=== PATIENT | male | born 1995 | race Asian ===

== ENCOUNTER 2017-08-19 17:50 | Emergency (ER) | payer BC ==
[~2017-08-19] VITALS: Ht 182.9 cm; Wt 131.5 kg
[2017-08-19 18:51] LABS: PLATELET COUNT 248 K/uL (142-355)
[2017-08-19 20:54] VITALS: BP 125/81; TEMP 98.3
== END 2017-08-19 20:55 | disposition home or self-care (01) ==
LOC: ED 17:50
PROVIDERS: Specialist
DX: R07.81 Pleurodynia (principal)
CPT/HCPCS: 36415; 85027; 85651; 99283

== ENCOUNTER 2018-09-01 11:13 | Outpatient (CLI) | payer BC ==
[2018-09-01 11:47] LABS: PLATELET COUNT 238 K/uL (142-355)
[2018-09-01 12:23] LABS: POTASSIUM 3.9 mmol/L (3.6-5.2)
== END 2018-09-01 19:34 | disposition home or self-care (01) ==
LOC: LABW 11:13
PROVIDERS: Nurse Practitioner
DX: R53.83 Other fatigue (principal)
CPT/HCPCS: 36415; 80053; 84443; 85027

== ENCOUNTER 2019-06-03 22:46 | Emergency (ER) | payer BC ==
[~2019-06-03] VITALS: Ht 182.9 cm; Wt 148.3 kg
[2019-06-03 23:40] LABS: PLATELET COUNT 242 K/uL (142-355)
[2019-06-04 00:17] LABS: PARTIAL THROMBOPLASTIN TIME 28.1 SECONDS (24.5-33.6)
[2019-06-04 00:32] LABS: POTASSIUM 3.7 mmol/L (3.6-5.2)
[2019-06-04 02:14] VITALS: BP 120/60; TEMP 98.6
== END 2019-06-04 02:14 | disposition home or self-care (01) ==
LOC: ED 22:46
PROVIDERS: Family Medicine
DX: M62.82 Rhabdomyolysis (principal)
CPT/HCPCS: 80053; 82550; 82553; 85027; 85610; 85730; 96360; 99284

== ENCOUNTER 2019-08-28 14:07 | Inpatient (IN) | payer BC ==
[~2019-08-28] VITALS: Ht 180.3 cm; Wt 153.3 kg
[2019-08-28] VITALS (16 sets, daily range): BP systolic 107–160; BP diastolic 44–104; TEMP 97.5–99.3; Ht 180.3 cm; Wt 153.3 kg
[2019-08-28 14:34] LABS: PLATELET COUNT 248 K/uL (142-355)
[2019-08-28 14:40] LABS: POTASSIUM 3.4 mmol/L (3.6-5.2); SODIUM 140 mmol/L (136-145)
[2019-08-28 15:07] LABS: PARTIAL THROMBOPLASTIN TIME 26.5 SECONDS (24.5-33.6)
--- NOTE | 2019-08-28 17:20 | NUR ---
RECIEVED REPORT FROM ER ADMITTED 24 YEAR OLD MALE TO ICU VIA W/C FROM ER ADMIT TO DR HERNANDEZ SERVICES DX A FIB RVR, HTN, HYPOKALEMIA, ELEVATED CPK/CKMB ORIENTED TO ICU, PLACED ON MONITOR. HR 108 A FIB. B/P 138/67, RESP 25 SAT 97% DENIES CHEST PAINS.
[2019-08-28] MEDS ORDERED: CETI10TA PO (18:48)
[2019-08-28] MEDS ORDERED: D32000 UNIT PO (18:51)
[2019-08-29] VITALS (21 sets, daily range): BP systolic 97–140; BP diastolic 46–77; TEMP 98–98.6
[2019-08-29 06:27] LABS: POTASSIUM 3.6 mmol/L (3.6-5.2)
--- NOTE | 2019-08-29 08:59 | NUR ---
RT IN AT BS. ECHO IN PROGRESS.
--- NOTE | 2019-08-29 09:34 | NUR ---
PT UP AT BS USING URINAL. AM CARE PER SELF.
--- NOTE | 2019-08-29 11:33 | NUR ---
CALL TO DR CURRAN'S OFFICE IN [facility]. PT REQUEST APPT WITH HIM. DR HARPER WANTS APPY MADE WITH HIM. OFFICE STAFF REQUESTED A REFERRAL & ALL INFO ON PT.
--- NOTE | 2019-08-29 12:06 | NUR ---
PT WITH HR 82 PO CARDIZEM GIVEN PER DR'S ORDER.CARDIZEM DRIP DECREASED TO 3MG/HR.
--- NOTE | 2019-08-29 13:52 | NUR ---
DR KOLB NOTIFIED THAT A REFERAL HAS BEEN DONE.
--- NOTE | 2019-08-29 14:30 | NUR ---
CARDIZEM DECREASED TO 1 MG/HR. 122/62, HR 76. PT WITH EYES CLOSED.O2 SAT 95% ON RM AIR.
--- NOTE | 2019-08-29 15:37 | NUR ---
PT ON TELE TALKING WITH FAMILY. BP 113/63, HR 81. KEATON Ott/Meena.
--- NOTE | 2019-08-29 17:45 | NUR ---
PT WITH NOTED PVC'S & A SHORT 6 BEAT RUN OF VTACH.CHEST PRESSURE. DR ESQUEDA NOTIFIED & IN TO SEE PT.
--- NOTE | 2019-08-29 18:20 | NUR ---
PT WITH SHORT RUN 2 BEAT VT, HR UP TO 143, PT CLUTCHING CHEST & MOANING, DR HERNANDEZ NOTIFIED, PT MEDICATED WITH MORPHINE 2MG IVP & 1 INCH NITRO PASTE APPLIED TO L CHEST WALL. CALLED. DISCUSSED PT'S S/SX. & POSSIBLE TRANSFER.
--- NOTE | 2019-08-29 18:31 | NUR ---
RT IN FOR EKG. PT RESTING IN LF.
--- NOTE | 2019-08-29 18:38 | NUR ---
8589 1 STEP TRANSFER CALLED PER MD HERNANDEZ. SPOKE WITH BLESSING. ALL INFORMATION GIVEN AND AWAITING TO SPEAK TO SPREADING MACHINE OPERATOR MD TO SPEAK TO DR HERNANDEZ CONCERNING TRANSFERING PT.
--- NOTE | 2019-08-29 18:43 | NUR ---
1643 PER BLESSING RUBIO DID NOT ANSWER THE PHONE. THEY WILL ATTEMPT TO RECALL THE ACCEPTING MD IN 15 MINS REPORT GIVEN TO KULWINDER LUGO RN.
--- NOTE | 2019-08-29 18:49 | NUR ---
PT WITH NOTED HR 96 BPM,NSR. DR HERNANDEZ NOTIFIED. PT DENIES CHEST PAIN OR PRESSURE.
== END 2019-08-29 20:35 | disposition short-term general hospital (02) | DRG 309 ==
LOC: ED 14:07 → ICU 15:55
PROVIDERS: Internal Medicine; ADMIT Family Medicine
DX: I48.91 Unspecified atrial fibrillation (principal); M62.82 Rhabdomyolysis; I47.2 Ventricular tachycardia
CPT/HCPCS: 36415; 80048; 80053; 80307; 81000; 82550; 82553; 84443; 84484; 85027; 85610; 85730; 93005; 93306; 94760; 96360; 96361; 96365; 96375; 96376; 99285; J0153; J1160; J1650; J2270; J3490

== ENCOUNTER 2020-03-19 10:27 | Emergency (ER) | payer OTHER ==
[~2020-03-19] VITALS: Ht 180.3 cm; Wt 143.3 kg
[~2020-03-19 10:27] MED LIST: CETI10TA PO; D32000 UNIT PO
[2020-03-19 10:40] VITALS: TEMP 98.9
[2020-03-19 12:14] LABS: PLATELET COUNT 237 K/uL (142-355)
[2020-03-19] MEDS ORDERED: LOSA50TA PO (12:16)
[2020-03-19] MEDS ORDERED: ASA LOW DOSE81 MG PO (12:16)
[2020-03-19] MEDS ORDERED: CARTIA XT180 MG PO (12:17)
[2020-03-19 12:20] LABS: POTASSIUM 3.6 mmol/L (3.6-5.2); SODIUM 142 mmol/L (136-145)
[2020-03-19 12:32] LABS: PARTIAL THROMBOPLASTIN TIME 29.1 SECONDS (24.5-33.6)
[2020-03-19 14:11] VITALS: BP 111/63
== END 2020-03-19 14:11 | disposition home or self-care (01) ==
LOC: ED 10:27
PROVIDERS: Hospitalist
DX: R07.89 Other chest pain (principal); Z20.828 Contact with and (suspected) exposure to other viral communicable diseases
CPT/HCPCS: 36415; 80053; 81000; 82550; 82553; 83880; 84484; 85027; 85379; 85610; 85730; 87635; 93005; 99284; U0003

== ENCOUNTER 2021-06-14 23:38 | Emergency (ER) | payer OTHER ==
[~2021-06-14] VITALS: Ht 182.9 cm; Wt 142.9 kg
[~2021-06-14 23:38] MED LIST changes: +ASA LOW DOSE81 MG PO; +CARTIA XT180 MG PO; +LOSA50TA PO
[2021-06-15 00:54] LABS: PLATELET COUNT 206 K/uL (142-355)
[2021-06-15 01:03] LABS: POTASSIUM 3.7 mmol/L (3.6-5.2)
[2021-06-15 01:45] VITALS: BP 146/62; TEMP 97.7
== END 2021-06-15 01:45 | disposition home or self-care (01) ==
LOC: ED 23:38
PROVIDERS: Emergency Medicine Emergency Medical Services
DX: R07.89 Other chest pain (principal); K21.9 Gastro-esophageal reflux disease without esophagitis
CPT/HCPCS: 36415; 80053; 84484; 85027; 93005; 99283